=== PATIENT | male | born 1985 | race Caucasian/White ===

== ENCOUNTER 2024-02-06 17:52 | Emergency (ER) | payer BC ==
--- NOTE | 2024-02-06 18:21 | ED ---
Fever HPI - General Source: patient, RN notes reviewed Mode of arrival: ambulatory Limitations: no limitations <Neelam Barrios - Last Filed: 02/06/24 18:20> - General Source: patient, RN notes reviewed, old records reviewed Mode of arrival: ambulatory Limitations: no limitations - History of Present Illness MD Complaint: fever, weakness -: hour(s) Context: recent procedure Associated Symptoms: chills, myalgias Treatments Prior to Arrival: none <Mason Moreno - Last Filed: 02/09/24 17:57> - General Chief Complaint: Fever Stated Complaint: Post op issues/high fever Time Seen by Provider: 02/06/24 18:20 - History of Present Illness Initial Comments: Quick note: 38-year-old male presented to ER with a chief complaint of fevers. Patient underwent an EGD and colonoscopy at [facility] today with Dr. Moreno. He states approximately 2 to 3 hours after discharge he spiked a fever of 103. He also was endorsing cough, nausea and epigastric abdominal pain. (Neelam Barrios) This is a 38-year-old male to ER for fever today with recent upper GI EGD and colonoscopy today. (Mason Moreno) - Related Data Home Medications Medication Instructions Recorded Confirmed Escitalopram [Lexapro] 10 mg PO DAILY 02/06/24 02/07/24 Finasteride [Propecia] 1 mg PO DAILY 02/06/24 02/07/24 Previous Rx's Medication Instructions Recorded Levofloxacin [Levaquin] 750 mg PO DAILY 7 Days #7 tab 02/06/24 Allergies Allergy/AdvReac Type Severity Reaction Status Date / Time No Known Allergies Allergy Verified 02/06/24 18:03 Review of Systems ROS Other: All systems not noted in ROS Statement are negative. <Neelam Barrios - Last Filed: 02/06/24 18:20> ROS Other: All systems not noted in ROS Statement are negative. <Mason Moreno - Last Filed: 02/09/24 17:57> ROS Statement: Those systems with pertinent positive or pertinent negative responses have been documented in the HPI. Past Medical History Past Medical History: No Reported History Past Surgical History: Cholecystectomy Smoking Status: Never smoker Past Alcohol Use History: Occasional Past Drug Use History: Marijuana <Neelam Barrios - Last Filed: 02/06/24 18:20> General Exam Limitations: no limitations <Neelam Barrios - Last Filed: 02/06/24 18:20> General appearance: alert, in no apparent distress Head exam: Present: atraumatic, normocephalic, normal inspection Eye exam: Present: normal appearance, PERRL, EOMI. Absent: scleral icterus, conjunctival injection, periorbital swelling ENT exam: Present: normal exam, mucous membranes moist Neck exam: Present: normal inspection. Absent: tenderness, meningismus, lymphadenopathy Respiratory exam: Present: normal lung sounds bilaterally. Absent: respiratory distress, wheezes, rales, rhonchi, stridor Cardiovascular Exam: Present: regular rate, normal rhythm, normal heart sounds. Absent: systolic murmur, diastolic murmur, rubs, gallop, clicks GI/Abdominal exam: Present: soft, normal bowel sounds. Absent: distended, tenderness, guarding, rebound, rigid Extremities exam: Present: normal inspection, full ROM, normal capillary refill. Absent: tenderness, pedal edema, joint swelling, calf tenderness Back exam: Present: normal inspection Neurological exam: Present: alert, oriented X3, CN II-XII intact Psychiatric exam: Present: normal affect, normal mood Skin exam: Present: warm, dry, intact, normal color. Absent: rash <Mason Moreno - Last Filed: 02/09/24 17:57> - General Exam Comments Initial Comments: Visual Physical Exam Vital signs reviewed General: Well-appearing, nontoxic, no acute distress. Head: Normocephalic, atraumatic Eyes: PERRLA, EOMI ENT: Airway patent Chest: Nonlabored breathing Skin: No visual rash, normal skin tone Neuro: Alert and oriented 3 Musculoskeletal: No gross abnormalities (Neelam Barrios) Course <Mason Moreno - Last Filed: 02/09/24 17:57> Vital Signs 02/06/24 02/06/24 02/06/24 18:01 20:41 21:57 Temperature 102.9 F H 99.7 F H 99.5 F Pulse Rate 142 H Respiratory 20 Rate Blood Pressure 106/66 O2 Sat by Pulse 97 Oximetry 02/06/24 22:28 Temperature 99.5 F Pulse Rate 102 H Respiratory 18 Rate Blood Pressure 99/62 O2 Sat by Pulse 98 Oximetry - Reevaluation(s) Reevaluation #1: 02/06/24 19:11 Medical records reviewed (Mason Moreno) Reevaluation #2: 02/06/24 22:03 Patient symptoms improved (Mason Moreno) Reevaluation #3: 02/06/24 22:03 Patient informed of results and questions answered (Mason Moreno) Reevaluation #4: Was pt. sent in by a medical professional or institution ([facility], [facility], urgent care, hospital, or [facility]...) When possible be specific @ -no Did you speak to anyone other than the patient for history (EMS, parent, family, police, friend...)? What history was obtained from this source @ -no Did you review nursing and triage notes (agree or disagree)? Why? @ -agree Are old charts reviewed (outside hosp., previous admission, EMS record, old EKG, old radiological studies, urgent care reports/EKG's, [facility] records)? Report findings @ -yes Differential Diagnosis (chest pain, altered mental status, abdominal pain women, abdominal pain men, vaginal bleeding, weakness, fever, dyspnea, syncope, headache, dizziness, GI bleed, back pain, seizure, CVA, palpatations, mental health, musculoskeletal)? @ -prior EKG interpreted by me (3pts min.). @ -yes X-rays interpreted by me (1pt min.). @ -yes n positive for pneumonia CT interpreted by me (1pt min.). @ -no U/S interpreted by me (1pt. min.). @ -no What testing was considered but not performed or refused? (CT, X-rays, U/S, labs)? Why? @ -none What meds were considered but not given or refused? Why? @ -none Did you discuss the management of the patient with other professionals (professionals i.e. [facility], [facility], lab, RT, psych nurse, oncology social worker, marzipan maker, teacher, personnel training officer, case management associate)? Give summary @ -no Was smoking cessation discussed for >3mins.? @ -no Was critical care preformed (if so, how long)? @ -no Were there social determinants of health that impacted care today? How? (Homelessness, low income, unemployed, alcoholism, drug addiction, transport ation, low edu. Level, literacy, decrease access to med. care, detention, rehab)? @ -none Was there de-escalation of care discussed even if they declined (Discuss DNR or withdrawal of care, Hospice)? DNR status @ -no What co-morbidities impacted this encounter? (DM, HTN, Smoking, COPD, CAD, Cancer, CVA, ARF, Chemo, Hep., AIDS, mental health diagnosis, sleep apnea, morbid obesity)? @ -none Was patient admitted / discharged? Hospital course, mention meds given and route, prescriptions, significant lab abnormalities, going to OR and other pertinent info. @ -38 male to the ER for evaluation for positive fever positive pneumonia. Patient feeling well here in the ER and can be discharged home Undiagnosed new problem with uncertain prognosis? @ -no Drug Therapy requiring intensive monitoring for toxicity (Heparin, Nitro, Insulin, Cardizem)? @ -no Were any procedures done? @ -no Diagnosis/symptom? @ -Fever pneumonia Acute, or Chronic, or Acute on Chronic? @ -Acute Uncomplicated (without systemic symptoms) or Complicated (systemic symptoms)? @ -Complicated Side effects of treatment? @ -no Exacerbation, Progression, or Severe Exacerbation? @ -exacerbation Poses a threat to life or bodily function? How? (Chest pain, USA, SC, pneumonia, PE, COPD, DKA, ARF, appy, cholecystitis, CVA, Diverticulitis, Homicidal, Suicidal, threat to staff... and all critical care pts) @ -yes with pneumonia (Mason Moreno) Reevaluation #5: Differential Fever: Pneumonia, viral URI, endocarditis, myocarditis, pericarditis, otitis, sinusitis, peritonsillar Abscess, retropharyngeal Abscess, epiglottitis, peritonitis, appendicitis, Bhavna cystitis, diverticulitis, hepatitis, colitis, UTI, PID, TOA, pyelonephritis, prostatitis, epididymitis, meningitis, enc ephalitis, pulmonary embolism, CVA, thyroid storm, pancreatitis, adrenal crisis, cavernous sinus thrombosis, this is not meant to be an all-inclusive list. (Mason Moreno) Medical Decision Making <Neelam Barrios - Last Filed: 02/06/24 18:20> - Lab Data Result diagrams: 02/06/24 19:32 02/06/24 19:32 - Radiology Data Radiology results: report reviewed (Chest x-ray and CT abdomen pelvis shows atelectasis versus pneumonia), image reviewed <Mason Moreno - Last Filed: 02/09/24 17:57> - Medical Decision Making I performed the quick note portion of this chart. Electronically signed by Neelam Barrios PA-C (Neelam Barrios) - Lab Data Lab Results 02/06/24 02/06/24 02/06/24 Range/Units 19:32 19:32 19:32 WBC 11.4 H (3.8-10.6) k/uL RBC 4.50 (4.30-5.90) m/uL Hgb 14.0 (13.0-17.5) gm/dL Hct 40.7 (39.0-53.0) % MCV 90.6 (80.0-100.0) fL MCH 31.2 (25.0-35.0) pg MCHC 34.4 (31.0-37.0) g/dL RDW 11.5 (11.5-15.5) % Plt Count 276 (150-450) k/uL MPV 6.9 Neutrophils % 86 % Lymphocytes % 7 % Monocytes % 5 % Eosinophils % 1 % Basophils % 1 % Neutrophils # 9.7 H (1.3-7.7) k/uL Lymphocytes # 0.8 L (1.0-4.8) k/uL Monocytes # 0.6 (0-1.0) k/uL Eosinophils # 0.1 (0-0.7) k/uL Basophils # 0.1 (0-0.2) k/uL Sodium 135 L (137-145) mmol/L Potassium 3.5 (3.5-5.1) mmol/L Chloride 102 (98-107) mmol/L Carbon Dioxide 23 (22-30) mmol/L Anion Gap 10 mmol/L BUN 11 (9-20) mg/dL Creatinine 0.77 (0.66-1.25) mg/dL Est GFR (CKD-EPI)AfAm >90 (>60 ml/min/1.73 sqM) Est GFR (CKD-EPI)NonAf >90 (>60 ml/min/1.73 sqM) Glucose 126 H (74-99) mg/dL Lactic Ac Sepsis Rflx Plasma Lactic Acid Francisco 2.5 H* (0.7-2.0) mmol/L Calcium 9.6 (8.4-10.2) mg/dL Phosphorus 2.1 L (2.5-4.5) mg/dL Magnesium 1.5 L (1.6-2.3) mg/dL Total Bilirubin 0.8 (0.2-1.3) mg/dL AST 27 (17-59) U/L ALT 31 (4-49) U/L Alkaline Phosphatase 56 (38-126) U/L Total Protein 7.0 (6.3-8.2) g/dL Albumin 4.4 (3.5-5.0) g/dL Lipase 63 (23-300) U/L Influenza Type A (PCR) (Not Detectd) Influenza Type B (PCR) (Not Detectd) RSV (PCR) (Not Detectd) SARS-CoV-2 (PCR) (Not Detectd) 02/06/24 02/06/24 Range/Units 20:09 20:10 WBC (3.8-10.6) k/uL RBC (4.30-5.90) m/uL Hgb (13.0-17.5) gm/dL Hct (39.0-53.0) % MCV (80.0-100.0) fL MCH (25.0-35.0) pg MCHC (31.0-37.0) g/dL RDW (11.5-15.5) % Plt Count (150-450) k/uL MPV Neutrophils % % Lymphocytes % % Monocytes % % Eosinophils % % Basophils % % Neutrophils # (1.3-7.7) k/uL Lymphocytes # (1.0-4.8) k/uL Monocytes # (0-1.0) k/uL Eosinophils # (0-0.7) k/uL Basophils # (0-0.2) k/uL Sodium (137-145) mmol/L Potassium (3.5-5.1) mmol/L Chloride (98-107) mmol/L Carbon Dioxide (22-30) mmol/L Anion Gap mmol/L BUN (9-20) mg/dL Creatinine (0.66-1.25) mg/dL Est GFR (CKD-EPI)AfAm (>60 ml/min/1.73 sqM) Est GFR (CKD-EPI)NonAf (>60 ml/min/1.73 sqM) Glucose (74-99) mg/dL Lactic Ac Sepsis Rflx Y Plasma Lactic Acid Francisco (0.7-2.0) mmol/L Calcium (8.4-10.2) mg/dL Phosphorus (2.5-4.5) mg/dL Magnesium (1.6-2.3) mg/dL Total Bilirubin (0.2-1.3) mg/dL AST (17-59) U/L ALT (4-49) U/L Alkaline Phosphatase (38-126) U/L Total Protein (6.3-8.2) g/dL Albumin (3.5-5.0) g/dL Lipase (23-300) U/L Influenza Type A (PCR) Not Detected (Not Detectd) Influenza Type B (PCR) Not Detected (Not Detectd) RSV (PCR) Not Detected (Not Detectd) SARS-CoV-2 (PCR) Not Detected (Not Detectd) Disposition <Neelam Barrios - Last Filed: 02/06/24 18:20> Is patient prescribed a controlled substance at d/c from ED?: No Time of Disposition: 22:00 <Mason Moreno - Last Filed: 02/09/24 17:57> Clinical Impression: Fever, Pneumonia Disposition: HOME SELF-CARE Condition: Good Instructions (If sedation given, give patient instructions): Fever in Adults (ED), Community Acquired Pneumonia (ED) Prescriptions: Levofloxacin [Levaquin] 750 mg PO DAILY 7 Days #7 tab Referrals: Nonstaff,Physician [Primary Care Provider] - 1-2 days
[2024-02-06 19:41] LABS: Basophils # (A) 0.1 k/uL (0-0.2); Basophils % (A) 1 %; Eosinophils # (A) 0.1 k/uL (0-0.7); Eosinophils % (A) 1 %; HCT 40.7 % (39.0-53.0); Lymphocytes # (A) 0.8 k/uL (1.0-4.8); Lymphocytes % (A) 7 %; MCH 31.2 pg (25.0-35.0); MCHC 34.4 g/dL (31.0-37.0); MCV 90.6 fL (80.0-100.0); Mean Platelet Volume 6.9; Monocytes # (A) 0.6 k/uL (0-1.0); Monocytes % (A) 5 %; Neutrophils # (A) 9.7 k/uL (1.3-7.7); Neutrophils % (A) 86 %; Platelet Count 276 k/uL (150-450); RDW 11.5 % (11.5-15.5); WBC 11.4 k/uL (3.8-10.6)
[2024-02-06] MEDS: SODIUM CHLORIDE 0.9% 500 ML 500 ML IV STA (19:56)
[2024-02-06] MEDS: SODIUM CHLORIDE 0.9% 1,000 ML IV STA (19:56)
[2024-02-06] MEDS: ACETAMINOPHEN IV (For NPO) 1,000 MG in EMPTY BAG 1 BAG IVPB STA (19:57)
[2024-02-06 20:07] LABS: ALT 31 U/L (4-49); AST 27 U/L (17-59); African American GFR (CKD) >90 (>60 ml/min/1.73 sqM); Albumin 4.4 g/dL (3.5-5.0); Alkaline Phosphatase 56 U/L (38-126); Anion Gap 10 mmol/L; Blood Urea Nitrogen 11 mg/dL (9-20); Calcium 9.6 mg/dL (8.4-10.2); Carbon Dioxide 23 mmol/L (22-30); Chloride 102 mmol/L (98-107); Glucose 126 mg/dL (74-99); Lipase 63 U/L (23-300); Magnesium 1.5 mg/dL (1.6-2.3); Non-African American GFR(CKD) >90 (>60 ml/min/1.73 sqM); Phosphorus 2.1 mg/dL (2.5-4.5); Potassium 3.5 mmol/L (3.5-5.1); Sodium 135 mmol/L (137-145); Total Bilirubin 0.8 mg/dL (0.2-1.3)
[2024-02-06] MEDS: IBUPROFEN IV 800 MG in SODIUM CHLORIDE 0.9% 250 ML IV ONE (20:39)
--- NOTE | 2024-02-06 21:10 | XR ---
EXAMINATION TYPE: XR chest 2V DATE OF EXAM: 02/06/2024 8:21 PM CLINICAL INDICATION: Male, 38 years old with history of cough; COMPARISON: None TECHNIQUE: XR chest 2V Frontal view of the chest. FINDINGS: Lungs/Pleura: Left midlung streaky atelectasis There is no evidence of pleural effusion, focal consol idation, or pneumothorax. Pulmonary vascularity: Unremarkable. Heart/mediastinum: Cardiomediastinal silhouette is unremarkable. Musculoskeletal: No acute osseous pathology. IMPRESSION: Left midlung streaky atelectasis and/or airspace disease. [facility], , 02/06/2024 9:07 PM
--- NOTE | 2024-02-06 21:23 | CT ---
EXAMINATION TYPE: CT abdomen pelvis w con CT DLP: 1048.1 mGycm, Automated exposure control for dose reduction was used. DATE OF EXAM: 02/06/2024 8:37 PM COMPARISON: None. CLINICAL INDICATION: Male, 38 years old with history of abd pain/fever s/p colonscopy/egd; abd pain/f ever s/p colonscopy/egd TECHNIQUE: Axial CT abdomen pelvis w con;Sagittal and coronal reformats were created on a separate w orkstation. Contrast used:100 ml mL of Isovue 370 with IV Contrast, (none if empty) Oral contrast used: without Oral Contrast (none if empty) FINDINGS: LOWER CHEST: Airspace opacities in the lingula partially visualized. ABDOMEN LIVER: Unremarkable GALLBLADDER AND BILE DUCTS: The gallbladder is surgically absent. PANCREAS: Unremarkable. SPLEEN: Unremarkable. ADRENAL GLANDS: Unremarkable. KIDNEYS AND URETERS: No evidence of hydronephrosis or renal calculus. The ureters are unremarkable. PELVIS BLADDER: Unremarkable REPRODUCTIVE: Unremarkable. ABDOMEN & PELVIS STOMACH AND BOWEL: No evidence of bowel obstruction. The appendix is normal. PERITONEUM/RETROPERITONEUM: No evidence of pneumoperitoneum or free fluid. VASCULATURE: No evidence of aortic aneurysm. MUSCULOSKELETAL: No acute osseous abnormalities LYMPH NODES: No gross evidence for lymphadenopathy. SOFT TISSUE/ABDOMINAL WALL: Unremarkable IMPRESSION: 1. Airspace opacities in the left upper lung as seen on ultrasound. Correlate for infection. 2. No evidence for acute abdominal process. No evidence for perforation or organizing fluid collecti on. [facility], , 02/06/2024 9:20 PM
[2024-02-06 21:58] VITALS: TEMP 99.5
[2024-02-06] MEDS: MAGNESIUM OXIDE 400 MG TAB PO STA ×2 (22:23→22:24)
[2024-02-06] MEDS: LEVOFLOXACIN 750 MG TAB PO STA (22:23)
[2024-02-06 22:29] VITALS: BP 99/62; PULSE 102; RESP 18
== END 2024-02-06 22:29 | disposition home or self-care (01) ==
LOC: EC 17:52
CPT/HCPCS: 36415; 71046; 74177; 80053; 83605; 83690; 83735; 84100; 85025; 87636; 96365; 96366; 96368; 99284